=== PATIENT | female | born 1980 | race Caucasian/White ===

== ENCOUNTER 2024-09-08 14:15 | Outpatient (AMB) | payer MEDICARE, MEDICAID, SELFPAY ==
[2024-09-08 14:29] VITALS: BP 156/87; PULSE 54; RESP 18; TEMP 36.5; O2SAT 99; BMI 24.0
--- NOTE | 2024-09-08 14:29 | PD.ORTHCLVIS ---
Vital signs 09/08/24 14:29 Height 1.5 m Height Method Stated Weight 54.063 kg Weight Measurement Method Standing Scale BMI 24.0 BP 156/87 H Blood Pressure Source Automatic Cuff Blood Pressure Location Left Upper Arm Position Sitting Respiration 18 Pulse 54 L Pulse Source Monitor Temp 97.7 F Temp Source Temporal Artery Scan Pulse Oximetry (%) 99 Oxygen Delivery Method Room Air Med/Allergies Allergies & Medications Allergies metoclopramide (From Reglan) Allergy (Verified 09/08/24 14:30) Medication Reconciliation ibuprofen 800 mg tablet 800 mg PO Q8H 09/08/24 [History Confirmed 09/08/24] omeprazole 20 mg capsule,delayed release 20 mg PO QDAY 09/08/24 [History Confirmed 09/08/24] Exam Exam Patient is in no acute distress and is cooperative with the examination today. Breathing is nonlabored. In no respiratory distress. Patient has no paraspinal tenderness. Spinal deformity cannot be appreciated. The gait of the patient is nonantalgic Bilateral extremities were evaluated and demonstrates sensation intact to light touch. Palpable pedal pulses are present. No significant edema is present. Bilateral knees were examined and the patient has full strength and range of motion.. The right hip was examined. Patient was able to flex to 90 degrees, adduct to 30 degrees, abduct to 40 degrees, internally rotate to 20 degrees, and externally rotate to 20 degrees. Patient has a negative logroll. Stinchfield is negative. The patient is nontender diffusely to touch. The left hip was examined. Patient was able to flex to 90 degrees, adduct to 30 degrees, abduct to 40 degrees, internally rotate to 20 degrees, and externally rotate to 20 degrees. Patient has a negative logroll. The stinchfield is negative. She is tender to palpation over the greater troch I have no hip films to review. She is report that states that there is moderate arthritis Assessment and Plan Problem List (1) Pain in left hip: Status: Acute Plan: Patient is a 44-year-old female with a left hip pain and likely left hip arthritis according the report. We will get X-rays to better evaluate the arthritis Office Procedures GNS Level of Care Nursing/Assessment Patient Status: Initial/New Patient Nursing Assessment/Reassesment: Medication Reconciliation, Update PMH in EMR and Vital Signs Coordination of Care: Complex Care and Chronic Disease 1-5, Education Complex Pt/Fam, Consent,records obtained, informed consent, 1 Ins Authorization, Lab and Imaging orders, Results/Orders obtained and Staff clarify orders New Patient Charge New Patient Point Assignment: 1124 New Patient Point Charge: CLINICAL MOLECULAR GENETICIST Level 4 ([id number]) [place] Intake Visit Data Collection New Patient or Established: Established Patient (seen at [facility] within 3 years) Reason for Visit:: LEFT HIP PAIN PCP or OBGYN visit in last 3 months: Yes Hx Now: No Do You Feel Safe at Home: Yes Authorities Contacted: N/A Questionairres Past Medical History Past Medical History Have you ever been diagnosed with any of the following: Respiratory Problems Smoking: No Smoking Exposure: No Musculoskeletal Problems Scoliosis: Yes Subjective Visit Visit for: new patient and hip (LEFT) Immunization / Flu Flu Vaccine in the Last 12 Months: No Flu Vaccine Exclusion Criteria: Refused by Patient History of Present Illness Chief complaint: Left hip pain Date of injury / onset of symptoms: 1 YEAR Martha is a 44-year-old female with left hip pain. The pain is not directly on the side of her hip. This has been ongoing for a while. She has had injections on the side of her hip in the past. Pain Pain level (0-10): 6 Pain duration: CONSTANT Pain location: groin and outside (lateral) Pain quality: dull and aching Pain timing: night, increases with activity and stairs Associated signs & symptoms: none Ambulatory data Ambulatory device: none Treatments Number of previous injections: 1 Improvement with previous injections: No Number of Physical Therapy sessions: 2 Improvement with PT: No Improvement with NSAIDS: no Review of Systems Review of Systems: All systems negative unless otherwise noted in HPI.
--- NOTE | 2024-09-08 14:41 | XR_ITS ---
Examination:Left hip AP, lateral, AP pelvis 3 views Technique: Hip AP lateral, AP pelvis, 3 views Exam date and time:September 08, 2024 1447 hours INDICATIONS: Left hip pain months FINDINGS: Mild osteopenia Mild to moderate narrowing right and left hip joints No hip or pelvic fracture No avascular necrosis IMPRESSION: Mild to moderate narrowing hip joints.
== END 2024-09-08 14:52 | disposition home or self-care (01) ==
LOC: HODSRG 14:15
PROVIDERS: PCP Family Medicine; Referring Provider Family Medicine; Supervising Provider Orthopaedic Surgery Adult Reconstructive Orthopaedic Surgery; Visit Provider Orthopaedic Surgery Adult Reconstructive Orthopaedic Surgery
DX: M25.552 Pain in left hip (principal)
CPT/HCPCS: 73502; 99204; G0463

== ENCOUNTER 2024-10-02 09:58 | Outpatient (AMB) | payer MEDICARE, MEDICAID, SELFPAY ==
[2024-10-02 10:35] VITALS: BP 148/85; PULSE 9; RESP 19; TEMP 36.5; O2SAT 98; BMI 24.2
--- NOTE | 2024-10-02 10:35 | PD.ORTHCLVIS ---
Vital signs 10/02/24 10:35 Height 1.5 m Height Method Stated Weight 54.544 kg Weight Measurement Method Standing Scale BMI 24.2 BP 148/85 H Blood Pressure Source Automatic Cuff Blood Pressure Location Left Upper Arm Position Sitting Respiration 19 Pulse 9 L Pulse Source Monitor Temp 97.7 F Temp Source Temporal Artery Scan Pulse Oximetry (%) 98 Oxygen Delivery Method Room Air Med/Allergies Allergies & Medications Allergies metoclopramide (From Reglan) Allergy (Verified 10/02/24 10:39) Medication Reconciliation ibuprofen 800 mg tablet 800 mg PO Q8H 09/08/24 [History Confirmed 10/02/24] omeprazole 20 mg capsule,delayed release 20 mg PO QDAY 09/08/24 [History Confirmed 10/02/24] naproxen 500 mg tablet 500 mg PO bid #60 tabs 10/02/24 [Rx] Exam Exam Patient is in no acute distress and is cooperative with the examination today. Breathing is nonlabored. In no respiratory distress. Patient has no paraspinal tenderness. Spinal deformity cannot be appreciated. The gait of the patient is nonantalgic Bilateral extremities were evaluated and demonstrates sensation intact to light touch. Palpable pedal pulses are present. No significant edema is present. Bilateral knees were examined and the patient has full strength and range of motion.. The right hip was examined. Patient was able to flex to 90 degrees, adduct to 30 degrees, abduct to 40 degrees, internally rotate to 20 degrees, and externally rotate to 20 degrees. Patient has a negative logroll. Stinchfield is negative. The patient is nontender diffusely to touch. The left hip was examined. Patient was able to flex to 90 degrees, adduct to 30 degrees, abduct to 40 degrees, internally rotate to 20 degrees, and externally rotate to 20 degrees. Patient has a negative logroll. The stinchfield is negative. She is tender to palpation over the greater troch I have no hip films to review. She is report that states that there is moderate arthritis Assessment and Plan Problem List (1) Pain in left hip: Status: Acute Plan: Patient is a 44-year-old female with a left hip pain and likely left hip arthritis according the report. X-rays demonstrate minimal arthritis on the new x-rays. She has pain on the lateral aspect of her hip. She has trochanteric bursitis given the location of the pain. We will send her naproxen and try a left hip cortisone injection for her bursa Recommend hip bursa cortisone injection as patient would like to proceed with conservative treatment at this time. The risks and benefits of the procedure were reviewed with the patient and patient gave verbal consent to continue with the procedure. Procedure: performed by Dr. Godoy Using sterile technique the left hip bursa was thoroughly prepped with alcohol prep, and approximately 1 cc of Kenalog 40 mg/mL and 4 cc of 1% Lidocaine was injected without resistance. The patient tolerated the procedure well. Office Procedures GNS Level of Care Nursing/Assessment Patient Status: Established Patient Nursing Assessment/Reassesment: Medication Reconciliation, Update PMH in EMR and Vital Signs Coordination of Care: Complex Care and Chronic Disease 1-5, Education Complex Pt/Fam, Consent,records obtained, informed consent, Results/Orders obtained and Staff clarify orders Established Patient Charge Established Patient Point Assignment: 95 Established Patient Point Charge: EP Level 3 (80-115) Surgical Proc/IM SQ injection Major Surgical Procedure: Yes (HIP INJECTION) Medication Given Medication Given Medication Given: Yes Documented Dose Given: 4 Route: Infiitration Medication Given Medication Given Medication Given: Yes Documented Dose Given: 1 Route: Infiitration Office Meds Xylocaine 10 mg/mL (1 %) injection solution Performing Provider: Sravan Godoy MD Performing Location: [facility] Administered by: Sravan Godoy MD on 10/02/24 10:57 Dose Route Admin Location Dispensed Lot Number Expiration Date [facility] [place] Sanitizer 20 mL Infiltration 20 mL [id number] 01/17/28 97068-060-31 [facility] triamcinolone acetonide 40 mg/mL suspension for injection Performing Provider: Sravan Godoy MD Performing Location: [facility] Administered by: Sravan Godoy MD on 10/02/24 10:57 Dose Route Admin Location Dispensed Lot Number Expiration Date [facility] [place] Sanitizer 40 mg intra-articular KNEE 1 mL [id number] 05/18/26 7385-1272-92 [employer] [place] Intake Visit Data Collection New Patient or Established: Established Patient (seen at [facility] within 3 years) Reason for Visit:: XRAY FOLLOW UP Seen by Clinical Staff ONLY (RN/MA): No PCP or OBGYN visit in last 3 months: Yes Hx Now: No Do You Feel Safe at Home: Yes Authorities Contacted: N/A Questionairres Past Medical History Past Medical History Have you ever been diagnosed with any of the following: Respiratory Problems Smoking: No Smoking Exposure: No Musculoskeletal Problems Scoliosis: Yes Subjective Visit Visit for: follow up visit and hip Immunization / Flu Flu Vaccine in the Last 12 Months: No Flu Vaccine Exclusion Criteria: No Exclusion Criteria History of Present Illness Chief complaint: Left hip pain Date of injury / onset of symptoms: 1 YEAR Martha is a 44-year-old female with left hip pain. The pain is directly on the side of her hip. This has been ongoing for a while. She has had injections on the side of her hip in the past. She did not get great relief but would like to try again. Tried physical therapy in the past and ibuprofen Pain Pain level (0-10): 6 Pain duration: COMES AND GOES Pain location: outside (lateral) Pain quality: sharp, dull and aching Pain timing: increases with activity Associated signs & symptoms: none Ambulatory data Ambulatory device: none Treatments Number of previous injections: 1 Improvement with previous injections: No Number of Physical Therapy sessions: 2 Improvement with PT: No Improvement with NSAIDS: no Review of Systems Review of Systems: All systems negative unless otherwise noted in HPI.
== END 2024-10-02 10:58 | disposition home or self-care (01) ==
LOC: HODSRG 09:58
PROVIDERS: PCP Family Medicine; Referring Provider Family Medicine; Supervising Provider Orthopaedic Surgery Adult Reconstructive Orthopaedic Surgery; Visit Provider Orthopaedic Surgery Adult Reconstructive Orthopaedic Surgery
DX: M25.552 Pain in left hip (principal); M16.12 Unilateral primary osteoarthritis, left hip; M70.62 Trochanteric bursitis, left hip
CPT/HCPCS: 20610; 99213; J3301; J3490; G0463

== ENCOUNTER 2025-01-28 13:57 | Outpatient (AMB) | payer MEDICARE, MEDICAID, SELFPAY ==
[2025-01-28 14:07] VITALS: BP 129/85; PULSE 80; RESP 18; TEMP 36.7; O2SAT 98; BMI 23.8
--- NOTE | 2025-01-28 14:07 | PD.ORTHCLVIS ---
Vital signs 01/28/25 14:07 Height 1.5 m Height Method Stated Weight 53.524 kg Weight Measurement Method Standing Scale BMI 23.8 BP 129/85 H Blood Pressure Source Automatic Cuff Blood Pressure Location Left Upper Arm Position Sitting Respiration 18 Pulse 80 Pulse Source Monitor Temp 98.0 F Temp Source Temporal Artery Scan Pulse Oximetry (%) 98 Oxygen Delivery Method Room Air Med/Allergies Allergies & Medications Allergies metoclopramide (From Reglan) Allergy (Verified 01/28/25 14:09) Medication Reconciliation ibuprofen 800 mg tablet 800 mg PO Q8H 09/08/24 [History Confirmed 01/28/25] omeprazole 20 mg capsule,delayed release 20 mg PO QDAY 09/08/24 [History Confirmed 01/28/25] naproxen 500 mg tablet 500 mg PO bid #60 tabs 10/02/24 [Rx Confirmed 01/28/25] Exam Exam Patient is in no acute distress and is cooperative with the examination today. Breathing is nonlabored. In no respiratory distress. Patient has no paraspinal tenderness. Spinal deformity cannot be appreciated. The gait of the patient is nonantalgic Bilateral extremities were evaluated and demonstrates sensation intact to light touch. Palpable pedal pulses are present. No significant edema is present. Bilateral knees were examined and the patient has full strength and range of motion.. The right hip was examined. Patient was able to flex to 90 degrees, adduct to 30 degrees, abduct to 40 degrees, internally rotate to 20 degrees, and externally rotate to 20 degrees. Patient has a negative logroll. Stinchfield is negative. The patient is nontender diffusely to touch. The left hip was examined. Patient was able to flex to 90 degrees, adduct to 30 degrees, abduct to 40 degrees, internally rotate to 20 degrees, and externally rotate to 20 degrees. Patient has a negative logroll. The stinchfield is negative. She is tender to palpation over the greater troch X-rays of the right hip demonstrate mild to moderate arthritis Assessment and Plan Problem List (1) Pain in left hip: Status: Acute Plan: Patient is a 44-year-old female with a left hip pain and likely left hip arthritis according the report. X-rays demonstrate minimal arthritis on the new x-rays. She is doing very well and has no pain right now. She can see us on an as-needed basis Office Procedures GNS Level of Care Nursing/Assessment Patient Status: Established Patient Nursing Assessment/Reassesment: Medication Reconciliation, Update PMH in EMR and Vital Signs Coordination of Care: Complex Care and Chronic Disease 1-5, Education Complex Pt/Fam, Consent,records obtained, informed consent, Results/Orders obtained and Staff clarify orders Established Patient Charge Established Patient Point Assignment: 95 Established Patient Point Charge: EP Level 3 (80-115) MA Intake Visit Data Collection New Patient or Established: Established Patient (seen at [facility] within 3 years) Reason for Visit:: FOLLOW UP HIP INJ Seen by Clinical Staff ONLY (RN/MA): No PCP or OBGYN visit in last 3 months: Yes Hx Now: No Do You Feel Safe at Home: Yes Authorities Contacted: N/A Questionairres Past Medical History Past Medical History Have you ever been diagnosed with any of the following: Respiratory Problems Smoking: No Smoking Exposure: No Musculoskeletal Problems Scoliosis: Yes Subjective Visit Visit for: follow up visit, hip and injections Immunization / Flu Flu Vaccine in the Last 12 Months: No Flu Vaccine Exclusion Criteria: No Exclusion Criteria History of Present Illness Chief complaint: Left hip INJECTION FOLLOW UP Date of injury / onset of symptoms: 1 YEAR Martha is a 44-year-old female with left hip pain. The pain is directly on the side of her hip. This has been ongoing for a while. She has had injections on the side of her hip in the past. She did great with the last hip trochanteric bursa injection. She has little pain right now Pain Pain level (0-10): 3 Pain duration: COMES AND GOES Pain location: outside (lateral) Pain quality: sharp, dull and aching Pain timing: increases with activity Associated signs & symptoms: none Ambulatory data Ambulatory device: none Treatments Number of previous injections: 1 Improvement with previous injections: No Number of Physical Therapy sessions: 2 Improvement with PT: No Improvement with NSAIDS: no Review of Systems Review of Systems: All systems negative unless otherwise noted in HPI.
== END 2025-01-28 14:20 | disposition home or self-care (01) ==
LOC: HODSRG 13:57
PROVIDERS: PCP Family Medicine; Referring Provider Family Medicine; Supervising Provider Orthopaedic Surgery Adult Reconstructive Orthopaedic Surgery; Visit Provider Orthopaedic Surgery Adult Reconstructive Orthopaedic Surgery
DX: M25.552 Pain in left hip (principal)
CPT/HCPCS: 99213; G0463